=== PATIENT | female | born 1995 | race Caucasian/White ===

== ENCOUNTER 2016-10-12 21:46 | Emergency (ER) | payer OTHER | END 2016-10-12 23:02 | disposition home or self-care (01) | LOC: FER 21:46 | DX: S92.425A Nondisplaced fracture of distal phalanx of left great toe, initial encounter for closed fracture (principal); Z88.8 Allergy status to other drugs, medicaments and biological substances; W22.8XXA Striking against or struck by other objects, initial encounter; Y92.009 Unspecified place in unspecified non-institutional (private) residence as the place of occurrence of the external cause | CPT/HCPCS: 73630 ==

== ENCOUNTER 2021-12-31 19:52 | Emergency (ER) | payer OTHER ==
[~2021-12-31 19:52] MED LIST: FLEXERIL10 MG PO
== END 2021-12-31 22:09 | disposition left against medical advice (07) ==
LOC: FER 19:52
DX: Z53.21 Procedure and treatment not carried out due to patient leaving prior to being seen by health care provider (principal)